=== PATIENT | male | born 1995 | race Caucasian/White ===

== ENCOUNTER 2022-07-18 10:16 | Inpatient (IN) | payer OTHER, MEDICAID, SELFPAY ==
--- NOTE | ~2022-07-18 | CT_ITS ---
EXAMINATION: CT cervical spine wo con DATE: 07/21/2022 18:14 INDICATION: Neck pain. TECHNIQUE: Computed tomography (CT) of the cervical spine was performed without intravenous contrast. Automated exposure control and iterative reconstruction technique were employed. The dose-length pro duct was 509.73 mGy-cm. COMPARISON: None FINDINGS: Bone alignment is normal. There is a Schmorl's node of superior endplate of C7. Interverteb ral disc heights are normal. The following disc levels are specifically discussed: C2-C3: There is no uncovertebral joint osteoarthritis. There is no facet joint osteoarthritis. There is no neural foraminal stenosis. There is no central canal stenosis. C3-C4: There is no uncovertebral joint osteoarthritis. There is no facet joint osteoarthritis. There is no neural foraminal stenosis. There is no central canal stenosis. C4-C5: There is mild bilateral uncovertebral joint osteoarthritis. There is no facet joint osteoarthr itis. There is no neural foraminal stenosis. There is no central canal stenosis. C5-C6: There is mild bilateral uncovertebral joint osteoarthritis. There is no facet joint osteoarthr itis. There is no neural foraminal stenosis. There is no central canal stenosis. C6-C7: There is no uncovertebral joint osteoarthritis. There is no facet joint osteoarthritis. There is no neural foraminal stenosis. There is no central canal stenosis. C7-T1: There is no uncovertebral joint osteoarthritis. There is moderate bilateral facet joint osteoa rthritis. There is mild bilateral neural foraminal stenosis. There is no central canal stenosis. IMPRESSION: 1. Mild cervical spondylosis. Reviewed, dictated and finalized at location A. IN[employer] ANCHOR
--- NOTE | ~2022-07-18 | MR_ITS ---
EXAMINATION: MR brain/brain stem wo con DATE: 07/19/2022 07:44 INDICATION: Occipital headache. TECHNIQUE: Magnetic resonance imaging (MRI) of the brain and brainstem was performed without intraven ous contrast. COMPARISON: None. FINDINGS: There is no intracranial hemorrhage, acute infarction, or abnormal intracranial mass lesion . The ventricles are normal in size. There is mild mucosal thickening in the paranasal sinuses. The o rbits are normal. There is a trace right mastoid effusion. IMPRESSION: 1. Normal brain. Reviewed, dictated and finalized at location E. IMPRESSION: 1. Normal brain.
--- NOTE | ~2022-07-18 | CT_ITS ---
EXAMINATION: CT lumbar spine wo con DATE: 07/21/2022 18:15 INDICATION: Back pain. TECHNIQUE: Computed tomography (CT) of the lumbar spine was performed without intravenous contrast. A utomated exposure control and iterative reconstruction technique were employed. The dose-length produ ct was 1332.44 mGy-cm. COMPARISON: None FINDINGS: There is a 2 mm stone in left kidney. There is 6 degrees levocurvature of lumbar spine. The re are Schmorl's nodes at multiple levels. There is mild chronic anterior wedging of T11 vertebral levi dy. There is mildly decreased disc height at L3-L4 and L4-L5. The osseous central spinal canal is dev elopmentally small in lumbar spine. The following disc levels are specifically discussed: L1-L2: The disc does not extend beyond the endplate margin. There is mild bilateral facet joint osteo arthritis. There is no neural foraminal stenosis. There is no central canal stenosis. L2-L3: The disc is bulging. There is mild bilateral facet joint osteoarthritis. There is mild lateral neural foraminal stenosis. There is mild central canal stenosis. L3-L4: The disc is bulging. There is mild bilateral facet joint osteoarthritis. There is mild bilater al neural foraminal stenosis. There is mild central canal stenosis. L4-L5: The disc is bulging. There is mild right and moderate left facet joint osteoarthritis. There i s mild bilateral neural foraminal stenosis. There is mild central canal stenosis. L5-S1: The disc does not extend beyond the endplate margin. There is moderate right and severe left f acet joint osteoarthritis. There is no neural foraminal stenosis. There is no central canal stenosis. IMPRESSION: 1. Mild lumbar spondylosis. Reviewed, dictated and finalized at location A. GING DIRECTOR IMPRESSION: 1. Mild lumbar spondylosis.
[2022-07-18 10:38] VITALS: BP 149/106; PULSE 127; RESP 20; TEMP 37.2; O2SAT 100
--- NOTE | 2022-07-18 12:18 | ECG_ITS ---
Measurements Intervals [place] Rate: 106 P: 22 GA: 160 QRS: 11 QRSD: 93 T: 12 QT: 310 QTc: 412 Interpretive Statements SINUS TACHYCARDIA BASELINE ARTIFACT- I, II, AVR, V1 ABNORMAL ECG NO PREVIOUS ECG AVAILABLE FOR COMPARISON Electronically Signed On 07-18-2022 13:01:49 CDT by Allen Kruger D.O.
[2022-07-18] MEDS: SODIUM CHLORIDE 0.9% IV 1,000 ML 999 ML IV CONT (12:33)
[2022-07-18 12:47] LABS: Basophils Percent Auto 0.4 % (0.2-1.2); Eosinophils Absolute Auto 0.3 K/mm3 (0-0.3); Eosinophils Percent Auto 3.3 % (0-4.4); Hematocrit 47.5 % (42.0-52.0); Hemoglobin 16.3 g/dL (14.0-18.0); Immature Granulocyte Absolute 0.03 K/mm3 (0.00-0.031); Immature Granulocyte Percent A 0.4 % (0-0.5); Lymphocytes Absolute Auto 3.03 K/mm3 (0.9-3.2); Lymphocytes Percent Auto 39.4 % (18.3-44.2); Mean Corpuscular HGB Conc 34.3 g/dl (32-36); Mean Corpuscular Hemoglobin 29.3 pg (26-34); Mean Corpuscular Volume 85.3 fl (80-100); Mean Platelet Volume 10.5 fl (7.4-10.4); Monocytes Absolute Auto 0.9 K/mm3 (0.1-0.6); Monocytes Percent Auto 11.8 % (2.6-8.5); Neutrophils Absolute Auto 3.4 K/mm3 (1.3-6.7); Neutrophils Percent Auto 44.7 % (45.5-73.1); Platelet Count Result 266 k/mm3 (150-375); Red Blood Count 5.57 M/mm3 (4.6-6.20); Red Cell Distribution Width 12.8 % (11.5-14.5); White Blood Count 7.7 K/mm3 (4.5-10.0)
--- NOTE | 2022-07-18 12:48 | ED.GENADULT ---
HPI - General Adult General Chief complaint: Unspecified Stated complaint: headache, neck pain, tooth abcess, foot cellulitis Time Seen by Provider: 07/18/22 12:05 History of Present Illness HPI narrative: This is a 27-year-old male with past medical history of cervical spine fracture several years ago without fixation, who presents to the emergency department with multiple complaints. He states over the past 2 weeks he began having migraine-like headaches associated with neck and back pain. He was evaluated at an outside hospital given IV fluids and discharged. He then developed erythema and swelling of the right lower extremity for which he was prescribed antibiotics with a diagnosis of cellulitis. He noted improvement of the swelling but persistence of the back and neck pain. He endorses occasional abdominal pain, light sensitivity, but denies chest pain or focal weakness. Related Data Home Medications Medication Instructions Recorded Confirmed sulfamethoxazole 800 1 tablet PO BID 07/18/22 07/18/22 mg-trimethoprim 160 mg tablet tamsulosin 0.4 mg capsule 0.4 mg PO HS 07/18/22 07/18/22 Allergies Allergy/AdvReac Type Severity Reaction Status Date / Time morphine AdvReac Stopped Verified 07/18/22 22:10 Breathing Review of Systems Review of Systems: CONSTITUTIONAL: fever, chills, Denies sweats. EYES: Denies visual changes, redness, or discharge. ENT: Denies rhinorrhea, congestion, sore throat, or otalgia. CARDIOVASCULAR: Denies chest pain, palpitations, or edema. RESPIRATORY: Denies cough or dyspnea. GASTROINTESTINAL: Denies abdominal pain, nausea, vomiting, or diarrhea. GENITOURINARY: Denies dysuria or hematuria. SKIN: Denies rash or itching. MUSCULOSKELETAL: Neck pain, back pain, joint pain, or myalgia. NEUROLOGIC: headache, Denies numbness, dizziness, or weakness. PSYCHIATRIC: Denies anxiety or depression. [facility] Family History Family History (Updated 07/18/22 @ 22:17 by Dana Liu RN) Mother Hypertension Sleep apnea IBS (irritable bowel syndrome) Father Deaf Achalasia Chronic obstructive pulmonary disease Hypertension Asthma Social History Social History Smoking status: Never smoker Alcohol intake: never Substance use: never Has the Lack of Transportation Kept You From Medical Appointments or From Getting Medications?: No Within the Past 12 Months, Were You Worried Whether Your Food Would Run Out Before You Got Money to Buy More?: Never True What is Your Housing Situation Today?: I Have Housing Are You Worried That in the Next 2 Months, You May Not Have Your Own Housing to Live In?: No Do You Have Trouble Paying Your Heating Or Electricity Bill?: No Do You Have Trouble Paying For Medicines?: No Are You Currently Unemployed and Looking for Work?: No Highest Level of Education Completed: Trade/Vocational Certificate Do You Have Trouble With Childcare or the Care of a Family Member?: No Spiritual care concerns: No Exam Narrative: GENERAL: Well-developed, well-nourished, and in no acute distress. HEAD: Normocephalic, atraumatic. EYES: PERRLA and EOMI. ENT: Nares clear, no rhinorrhea or epistaxis. Mucous membranes moist. Oropharynx without tonsillar hypertrophy exudate or other lesions. NECK: Tender to palpation, stiff, head impulse test positive; no adenopathy or masses. No carotid bruits or JVD CHEST: Clear to auscultation. No respiratory distress. No wheezes rales or rhonchi HEART: Tachycardic with regular rhythm. No murmur heard. Normal peripheral pulses. ABDOMEN: Soft, minimally and diffusely tender, nondistended, normal active bowel sounds. EXTREMITIES: Normal range of motion. No edema. SKIN: Warm, dry, no rash. NEURO: No focal deficits. Alert and oriented x3. PSYCH: Normal mood and affect. Course Course Emergency Course: 17:18 - LP demonstrates leukocytosis with lymphocyte predominance and a negative gram stain. Chemistries unremarkable. Infl
[2022-07-18 13:06] LABS: Lactic Acid Reflex 0.7 mmol/L (0.7-2.0)
[2022-07-18 13:08] LABS: Alanine Aminotransferase 50 U/L (6-50); Albumin Level 4.6 g/dL (3.5-5.1); Alkaline Phosphatase 65 U/L (38-126); Anion Gap 15 mmol/L (8-16); Aspartate Amino Transferase 36 U/L (17-59); Bilirubin,Total 1.2 mg/dL (0.2-1.3); Blood Urea Nitrogen 14 mg/dL (9-20); CRP < 0.5 mg/dL (<1.0); Carbon Dioxide 24 mmol/L (22-30); Chloride 101 mmol/L (98-107); Estimated CRCL calculation 116 ml/min; Estimated Glomerular Filt Rate > 60; Glucose 95 mg/dL (65-110); Lipase 41 U/L (23-300); Potassium 3.7 mmol/L (3.4-5.0); Sodium 140 mmol/L (137-145)
[2022-07-18 13:30] LABS: Erythrocyte Sedimentation Rate 4 mm/hr (0-20)
--- NOTE | 2022-07-18 14:01 | PC.NURSE ---
Lumbar puncture set up initiated for patient. Consent signed and obtained at this time.
--- NOTE | 2022-07-18 14:55 | PC.NURSE ---
Patient currently lying flat after lumbar puncture, no difficulty with procedure
[2022-07-18 15:00] VITALS: BP 148/84; PULSE 98; RESP 14; O2SAT 100
--- NOTE | 2022-07-18 15:00 | PC.NURSE ---
assumed care of pt. at this time. Report from SILVER Mims
[2022-07-18 15:04] LABS: Glucose CSF 52 mg/dL (40-70); Total Protein CSF 81 mg/dL (12-60)
[2022-07-18 15:44] LABS: Appearance CSF Hazy (Clear); CSF source CSF; Color CSF Colorless (Colorless); Nucleated Cell CSF 850 /uL (0-5); Red Blood Cell CSF 95 (0-2)
[2022-07-18 15:45] LABS: Lymphocytes CSF 98 % (40-80); Monocytes CSF 1 % (15-45); Neutrophils CSF 1 % (0-6)
--- NOTE | 2022-07-18 16:00 | PC.NURSE ---
report given to SILVER kumar she assumed care of pt.
[2022-07-18 17:18] VITALS: BP 130/74; PULSE 100; RESP 16; TEMP 36.5; O2SAT 98
[2022-07-18] MEDS: cefTRIAXone 2 GM in SODIUM CHLORIDE 0.9% IV 100 ML 200 ML IVPB (17:43)
--- NOTE | 2022-07-18 20:23 | PM.IMHP ---
H&P: HPI History of Present Illness Date/Time: 07/18/22 20:23 Chief Complaint: Headache Narrative: This is a 27-year-old male with past medical history significant for obesity, patient presents to the emergency room after 10 days of headaches which have remained constant in the occipital area and neck area with photophobia patient had initially to abscess for which he completed a course of amoxicillin he was noted to have a right foot cellulitis for which he was placed on Bactrim patient continue to have daily persistent headaches he went fishing 2 weeks ago and noted a tick crawling but no ticks attached. Patient denies any nausea, vomiting but has had some loose stools, no rashes, no cough, no sputum production. In our emergency room patient had LP done and was placed on Rocephin. Preliminary workup was significant for csf analysis which was abnormal. Review of Systems Review of Systems: daily occipital headache neck pain and photophobia Constitutional: Constitutional: Denies chills, Denies fever(s), Reports malaise, Denies night sweats and Denies poor appetite Eyes: Eyes: Reports photophobia ENT: Denies dysphagia, Denies vertigo, Denies dizziness and Denies odynophagia Cardiovascular: Cardiovascular: Denies chest pain, Denies irregular heart rhythm, Denies leg edema, Denies lightheadedness and Denies palpitations Respiratory: Respiratory: Denies chest congestion, Denies cough, Denies excessive phlegm production, Denies pain on inspiration, Denies dyspnea and Denies dyspnea on exertion Gastrointestinal: Gastrointestinal: Denies abdominal pain, Denies dyspepsia, Denies heartburn, Denies diarrhea, Reports loose stools, Denies nausea and Denies vomiting Genitourinary: Genitourinary: Denies dysuria Musculoskeletal: Musculoskeletal: Denies myalgias, Denies arthralgias and Denies limited range of motion Integumentary/Breasts: Skin/Breast: Denies rash and Reports other ( right leg cellulitis) Neurologic: Reports Other visual disturbances ( photophobia) and Reports other ( occipital headache) Psychiatric: Psychiatric: Reports no additional psychiatric complaints and Reports as per HPI Endocrine: Endocrine: Denies cold intolerance, Denies flushing, Denies heat intolerance, Denies polyphagia, Denies polydipsia and Denies palpitations Hematologic/Lymphatic: Hematologic/Lymphatic: Reports no additional hematologic/lymphatic complaints and Reports as per HPI Allergic/Immunologic: Allergic/Immunologic: Reports no additional allergic/immunologic complaints and Reports as per HPI [facility] Family History Family History (Updated 07/18/22 @ 22:17 by Dana iLu RN) Mother Hypertension Sleep apnea IBS (irritable bowel syndrome) Father Deaf Achalasia Chronic obstructive pulmonary disease Hypertension Asthma Social History Social History Smoking status: Never smoker Alcohol intake: never Substance use: never Has the Lack of Transportation Kept You From Medical Appointments or From Getting Medications?: No Within the Past 12 Months, Were You Worried Whether Your Food Would Run Out Before You Got Money to Buy More?: Never True What is Your Housing Situation Today?: I Have Housing Are You Worried That in the Next 2 Months, You May Not Have Your Own Housing to Live In?: No Do You Have Trouble Paying Your Heating Or Electricity Bill?: No Do You Have Trouble Paying For Medicines?: No Are You Currently Unemployed and Looking for Work?: No Highest Level of Education Completed: Trade/Vocational Certificate Do You Have Trouble With Childcare or the Care of a Family Member?: No Spiritual care concerns: No Meds Home Medications and Allergies Home Medications Medication Instructions Recorded Confirmed Type sulfamethoxazole 800 1 tablet PO BID 07/18/22 07/18/22 History mg-trimethoprim 160 mg tablet tamsulosin 0.4 mg capsule 0.4 mg PO HS 07/18/22 07/18/22 History Allergies Allergy/Adv
[2022-07-18 22:00] VITALS: BP 164/104; PULSE 100; RESP 16; TEMP 36.6; O2SAT 98
--- NOTE | 2022-07-18 22:05 | ADMGEN ---
This patient, Otis Reyes, was admitted to 3 [facility] S[facility] Room 310-01. Patient/family oriented to hospital policies and general routines including ID bracelet, bed and alarms, visiting hours, pain management, procedures, bathroom and other care routines, personal items, smoking policy, room service/diet, and visiting hours. Information on how to activate the Rapid Response Team has been discussed. Patient/Family are encouraged to report perceived risks to care and to ask questions if they do not understand what they are told or what they should do.
[2022-07-18 22:29] VITALS: BMI 43.5
[2022-07-18 22:34] VITALS: BP 164/104; TEMP 36.6; BMI 43.5
[2022-07-18 22:36] LABS: SARS-CoV-2 RNA PCR Negative
[2022-07-19] MEDS: LORazepam INJ (*CRX) 2 MG/ML VIAL 1 MG IV PUSH ×2 (02:50→23:16)
[2022-07-19 05:21] VITALS: BP 138/87; PULSE 108; RESP 20; TEMP 37.4; O2SAT 98
[2022-07-19 08:00] VITALS: BP 150/88; PULSE 90; RESP 20; TEMP 37.5; O2SAT 99
[2022-07-19 12:00] VITALS: BP 140/82; PULSE 93; RESP 20; TEMP 36.3; O2SAT 95
[2022-07-19] MEDS: CALCIUM CARBONATE (TUMS) 500 MG (200 MG ELEMENTAL) PO (13:28)
--- NOTE | 2022-07-19 15:52 | PM.IMPN ---
Progress Note: A&P Assessment and Plan (1) CSF pleocytosis: Code(s): D72.9 - Disorder of white blood cells, unspecified Status: Acute Assessment and Plan: status post lumbar [place] leukocytosis with lymphocyte predominance G stain is negative on ceftriaxone 2 g IV Suspected Lyme meningitis delete done (2) Occipital headache: Code(s): R51.9 - Headache, unspecified Status: Acute Assessment and Plan: supportive care MRI of the brain Normal Plan right leg cellulitis improving which is from 2 weeks ago reviewed unsure if this was erythema migrans Subjective Date/time seen: 07/19/22 15:52 Interval history: This is a 27-year-old male with past medical history significant for obesity, patient presents to the emergency room after 10 days of headaches which have remained constant in the occipital area and neck area with photophobia patient had initially to abscess for which he completed a course of amoxicillin he was noted to have a? right foot cellulitis for which he was placed on Bactrim patient continue to have daily persistent headaches he went fishing 2 weeks ago and noted a tick crawling but no ticks attached.? Patient denies any nausea, vomiting but has had some loose stools, no rashes, no cough, no sputum production.? In our emergency room patient had LP done and was placed on Rocephin.? Preliminary workup was significant for csf? analysis which was abnormal. 07/19/2022: Feeling better. Remains afebrile. Neck pain and headache has improved. Rash on his leg has improved Review of Systems Review of Systems: All systems reviewed & are unremarkable except as noted in HPI and below Exam Narrative: GENERAL: Well-developed, well-nourished, and in no acute distress. HEAD: Normocephalic, atraumatic. EYES: PERRLA and EOMI. ENT: Nares clear, no rhinorrhea or epistaxis.? NECK: nontender, no adenopathy or masses.? No carotid bruits or JVD CHEST: Clear to auscultation.? No respiratory distress.? No wheezes rales or rhonchi HEART: regular rate and regular rhythm.? No murmur heard.? Normal peripheral pulses. ABDOMEN: Soft, minimally and diffusely tender, nondistended, normal active bowel sounds. EXTREMITIES: Normal range of motion.? No edema. SKIN: Warm, dry, no rash. NEURO: No focal deficits.? Alert and oriented x3. PSYCH: Normal mood and affect. Objective Data Vital Signs Vital Signs: Vital Signs - 24 hr 07/18/22 17:18 07/18/22 22:00 07/19/22 05:21 Temperature 97.7 F 97.8 F 99.3 F Pulse Rate 100 100 108 H Respiratory Rate 16 16 20 Blood Pressure 130/74 164/104 H 138/87 Pulse Oximetry 98 98 98 Oxygen Delivery 07/19/22 08:00 07/19/22 08:00 07/19/22 12:00 Temperature 99.5 F 97.4 F L Pulse Rate 90 93 Respiratory Rate 20 20 Blood Pressure 150/88 H 140/82 Pulse Oximetry 99 95 Oxygen Delivery Room Air 07/18/22 22:34 Temperature 97.8 F Pulse Rate Respiratory Rate Blood Pressure 164/104 H Pulse Oximetry Oxygen Delivery Intake/Output Intake/Output: Intake & Output 07/16/22 07/17/22 07/18/22 07/19/22 23:59 23:59 23:59 23:59 Intake Total 1200 960 Balance 1200 960 Meds/Results Medications: Active Medications Generic Name Dose Route Start Last Admin Trade Name Freq PRN Reason Stop Dose Admin Calcium Carbonate 200 mg 07/19/22 11:39 07/19/22 13:28 Calcium Carbonate (Tums) 500 Mg (200 Mg Elemental) PO 200 mg Q6H PRN Administration Indigestion Acetaminophen 1,000 mg in 100 mls @ 400 mls/hr 07/18/22 17:18 07/19/22 11:10 Ofirmev 1,000 Mg Ivpb IVPB 07/19/22 17:17 Infused Q6H PRN Infusion Mild Pain (1-3) or Fever Lorazepam 1 mg 07/18/22 23:35 07/19/22 02:50 Lorazepam Inj (*Crx) 2 Mg/Ml Vial IV PUSH 1 mg Q6H PRN Administration Pain Tamsulosin HCl 0.4 mg 07/19/22 21:00 Tamsulosin Hcl 0.4 Mg Capsule PO [facility] Radiology Results: ITS Impressions Brain MRI 07/19/22 14:47 IMPR
[2022-07-19 16:00] VITALS: BP 151/85; PULSE 101; RESP 20; TEMP 36.6; O2SAT 97
[2022-07-19 16:56] VITALS: O2SAT 98
[2022-07-19] MEDS: cefTRIAXone 2 GM in SODIUM CHLORIDE 0.9% IV 100 ML 200 ML IVPB (17:04)
[2022-07-19 20:00] VITALS: BP 151/89; PULSE 94; RESP 20; TEMP 36.9; O2SAT 96
[2022-07-19] MEDS: TAMSULOSIN HCL 0.4 MG CAPSULE PO (20:15)
[2022-07-19] MEDS: ACETAMINOPHEN 325 MG TABLET 650 MG PO (21:58)
[2022-07-20] VITALS: BP 160/88; PULSE 100; RESP 20; TEMP 36.6; O2SAT 96
--- NOTE | 2022-07-20 01:15 | PC.NURSE ---
Daylight Savings Time For Daylight Savings Time Ending in the Fall - Clocks are moved back. For Daylight Savings Time Beginning in the Spring - Clocks are moved ahead. For [facility], the time of change occurs at 0200 hrs. Time is taken from the cafeteria server. This entry on the patient's chart recognizes the change in time reflected during documentation. Example: 2 entries for vital signs may be charted for 0200 hrs.
[2022-07-20 04:00] VITALS: BP 167/94; PULSE 86; RESP 16; TEMP 36.9; O2SAT 100
[2022-07-20 08:00] VITALS: BP 141/97; PULSE 80; RESP 20; TEMP 36.7; O2SAT 97
[2022-07-20] MEDS: ACETAMINOPHEN 325 MG TABLET 650 MG PO (08:45)
[2022-07-20] MEDS: HYDROcodone/acetaminophen (*CRX) 5-325 MG TABLET 1 TAB PO ×2 (11:58→20:19)
[2022-07-20 12:00] VITALS: BP 156/86; PULSE 93; RESP 20; TEMP 36.2; O2SAT 98
--- NOTE | 2022-07-20 13:29 | PM.IMPN ---
Progress Note: A&P Assessment and Plan (1) CSF pleocytosis: Code(s): D72.9 - Disorder of white blood cells, unspecified Status: Acute Assessment and Plan: status post lumbar puncture, CSF with leukocytosis with lymphocyte predominance G stain is negative on ceftriaxone 2 g IV day 3 Suspected Lyme meningitis (2) Occipital headache: Code(s): R51.9 - Headache, unspecified Status: Acute Assessment and Plan: supportive care MRI of the brain Normal Plan right leg cellulitis seems resolved today which is from 2 weeks ago reviewed unsure if this was erythema migrans Subjective Date/time seen: 07/20/22 13:29 Interval history: This is a 27-year-old male with past medical history significant for obesity, patient presents to the emergency room after 10 days of headaches which have remained constant in the occipital area and neck area with photophobia patient had initially to abscess for which he completed a course of amoxicillin he was noted to have a? right foot cellulitis for which he was placed on Bactrim patient continue to have daily persistent headaches he went fishing 2 weeks ago and noted a tick crawling but no ticks attached.? Patient denies any nausea, vomiting but has had some loose stools, no rashes, no cough, no sputum production.? In our emergency room patient had LP done and was placed on Rocephin.? Preliminary workup was significant for csf? analysis which was abnormal. 07/19/2022: Feeling better. Remains afebrile. Neck pain and headache has improved. Rash on his leg has improved 07/20/2022: Complains of muscle spasms in his legs. Remains afebrile. no shortness of breath or chest pain Review of Systems Review of Systems: All systems reviewed & are unremarkable except as noted in HPI and below Exam Narrative: GENERAL: Well-developed, well-nourished, and in no acute distress. HEAD: Normocephalic, atraumatic. EYES: PERRLA and EOMI. ENT: Nares clear, no rhinorrhea or epistaxis.? NECK: nontender, no adenopathy or masses.? No carotid bruits or JVD CHEST: Clear to auscultation.? No respiratory distress.? No wheezes rales or rhonchi HEART: regular rate and regular rhythm.? No murmur heard.? Normal peripheral pulses. ABDOMEN: Soft, minimally and diffusely tender, nondistended, normal active bowel sounds. EXTREMITIES: Normal range of motion.? No edema. right foot redness is improved SKIN: Warm, dry, no rash. NEURO: No focal deficits.? Alert and oriented x3. PSYCH: Normal mood and affect. Objective Data Vital Signs Vital Signs: Vital Signs - 24 hr 07/19/22 16:00 07/19/22 16:56 07/19/22 20:00 Temperature 97.8 F 98.4 F Pulse Rate 101 H 94 Respiratory Rate 20 20 Blood Pressure 151/85 H 151/89 H Pulse Oximetry 97 98 96 Oxygen Delivery Room Air 07/19/22 20:00 07/20/22 00:00 07/20/22 04:00 Temperature 97.9 F 98.5 F Pulse Rate 100 86 Respiratory Rate 20 16 Blood Pressure 160/88 H 167/94 H Pulse Oximetry 96 100 Oxygen Delivery Room Air 07/20/22 08:00 07/20/22 08:00 Temperature 98.0 F Pulse Rate 80 80 Respiratory Rate 20 20 Blood Pressure 141/97 H Pulse Oximetry 97 97 Oxygen Delivery Room Air Intake/Output Intake/Output: Intake & Output 07/17/22 07/18/22 07/19/22 07/20/22 23:59 23:59 23:59 22:59 Intake Total 1200 1200 662 Balance 1200 1200 662 Meds/Results Medications: Active Medications Generic Name Dose Route Start Last Admin Trade Name Freq PRN Reason Stop Dose Admin Acetaminophen 650 mg 07/19/22 18:36 07/20/22 08:45 Acetaminophen 325 Mg Tablet PO 650 mg Q6H PRN Administration Mild Pain (1-3) or Fever Hydrocodone Bitart/Acetaminophen 1 tab 07/20/22 10:57 07/20/22 11:58 Hydrocodone/Acetaminophen (*Crx) 5-325 Mg Tablet PO 1 tab Q4H PRN Administration Pain Rated 4-6 Calcium Carbonate 200 mg 07/19/22 11:39 07/19/22 13:28 Calcium Carbonate (Tums) 500 Mg (200 Mg Elemental) PO
[2022-07-20 16:00] VITALS: BP 146/78; PULSE 79; RESP 20; TEMP 35.9; O2SAT 99
[2022-07-20] MEDS: cefTRIAXone 2 GM in SODIUM CHLORIDE 0.9% IV 100 ML 200 ML IVPB (17:50)
[2022-07-20 20:00] VITALS: BP 127/81; PULSE 89; RESP 18; TEMP 36.1; O2SAT 98
[2022-07-20] MEDS: TAMSULOSIN HCL 0.4 MG CAPSULE PO (20:10)
[2022-07-20] MEDS: CYCLOBENZAPRINE HCL 10 MG TABLET PO (23:57)
[2022-07-21] VITALS: BP 135/83; PULSE 91; RESP 18; TEMP 35.9; O2SAT 98
[2022-07-21] MEDS: HYDROcodone/acetaminophen (*CRX) 5-325 MG TABLET 1 TAB PO ×3 (01:46→20:35)
[2022-07-21 04:00] VITALS: BP 146/83; PULSE 86; RESP 18; TEMP 35.8; O2SAT 99
[2022-07-21 06:27] LABS: Basophils Percent Auto 0.6 % (0.2-1.2); Eosinophils Absolute Auto 0.5 K/mm3 (0-0.3); Eosinophils Percent Auto 7.1 % (0-4.4); Hematocrit 45.2 % (42.0-52.0); Hemoglobin 15.5 g/dL (14.0-18.0); Immature Granulocyte Absolute 0.02 K/mm3 (0.00-0.031); Immature Granulocyte Percent A 0.3 % (0-0.5); Lymphocytes Absolute Auto 2.84 K/mm3 (0.9-3.2); Lymphocytes Percent Auto 39.7 % (18.3-44.2); Mean Corpuscular HGB Conc 34.3 g/dl (32-36); Mean Corpuscular Hemoglobin 29.2 pg (26-34); Mean Corpuscular Volume 85.3 fl (80-100); Mean Platelet Volume 11.1 fl (7.4-10.4); Monocytes Absolute Auto 0.5 K/mm3 (0.1-0.6); Monocytes Percent Auto 7.5 % (2.6-8.5); Neutrophils Absolute Auto 3.2 K/mm3 (1.3-6.7); Neutrophils Percent Auto 44.8 % (45.5-73.1); Platelet Count Result 183 k/mm3 (150-375); Red Cell Distribution Width 12.6 % (11.5-14.5); White Blood Count 7.2 K/mm3 (4.5-10.0)
[2022-07-21 06:40] LABS: Alanine Aminotransferase 32 U/L (6-50); Alkaline Phosphatase 71 U/L (38-126); Anion Gap 15 mmol/L (8-16); Aspartate Amino Transferase 23 U/L (17-59); Bilirubin,Total 0.7 mg/dL (0.2-1.3); Blood Urea Nitrogen 11 mg/dL (9-20); Calcium 8.5 mg/dL (8.4-10.2); Carbon Dioxide 23 mmol/L (22-30); Chloride 103 mmol/L (98-107); Estimated CRCL calculation 177 ml/min; Estimated Glomerular Filt Rate > 60; Glucose 100 mg/dL (65-110); Potassium 3.8 mmol/L (3.4-5.0); Sodium 141 mmol/L (137-145)
[2022-07-21 06:46] LABS: Lyme Disease DNA Not detected (Not Detected); Specimen Source CSF
[2022-07-21 08:00] VITALS: BP 128/94; PULSE 69; RESP 20; TEMP 36.4; O2SAT 98
[2022-07-21 12:00] VITALS: BP 161/78; PULSE 86; RESP 20; TEMP 36.4; O2SAT 96
[2022-07-21 16:00] VITALS: BP 138/91; PULSE 84; RESP 20; TEMP 36.2; O2SAT 97
--- NOTE | 2022-07-21 16:30 | PM.IMPN ---
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 lyme ab pending. hsv , rpr, [place] has not valerie sent, dsicussed with lab and will be ressent. lyme ab in blood pending as well. has multiple joint pains, which can relate to lyme arthritis as well. (2) Occipital headache: Code(s): R51.9 - Headache, unspecified Status: Acute Assessment and Plan: supportive care MRI of the brain Normal (3) Acute neck pain: Code(s): M54.2 - Cervicalgia Status: Acute Assessment and Plan: check ct cervical spine to furthe revaluate (4) Low back pain: Code(s): M54.50 - Low back pain, unspecified Status: Acute Assessment and Plan: check ct to further evaluate Plan right leg cellulitis seems resolved today which is from 2 weeks ago reviewed unsure if this was erythema migrans Subjective Date/time seen: 07/21/22 16:30 Interval history: This is a 27-year-old male with past medical history significant for obesity, patient presents to the emergency room after 10 days of headaches which have remained constant in the occipital area and neck area with photophobia patient had initially to abscess for which he completed a course of amoxicillin he was noted to have a? right foot cellulitis for which he was placed on Bactrim patient continue to have daily persistent headaches he went fishing 2 weeks ago and noted a tick crawling but no ticks attached.? Patient denies any nausea, vomiting but has had some loose stools, no rashes, no cough, no sputum production.? In our emergency room patient had LP done and was placed on Rocephin.? Preliminary workup was significant for csf? analysis which was abnormal. 07/19/2022: Feeling better. Remains afebrile. Neck pain and headache has improved. Rash on his leg has improved 07/20/2022: Complains of muscle spasms in his legs. Remains afebrile. no shortness of breath or chest pain 07/21/2022: he feels a bit crampy and drowsy today. neck and back hurt persists. left thigh is more painful than the other areas. labs were reviewed. remains afebrile. Review of Systems Review of Systems: All systems reviewed & are unremarkable except as noted in HPI and below Exam Narrative: GENERAL: Well-developed, well-nourished, and in no acute distress. HEAD: Normocephalic, atraumatic. EYES: PERRLA and EOMI. ENT: Nares clear, no rhinorrhea or epistaxis.? NECK: nontender, no adenopathy or masses.? No carotid bruits or JVD CHEST: Clear to auscultation.? No respiratory distress.? No wheezes rales or rhonchi HEART: regular rate and regular rhythm.? No murmur heard.? Normal peripheral pulses. ABDOMEN: Soft, minimally and diffusely tender, nondistended, normal active bowel sounds. EXTREMITIES: Normal range of motion.? No edema. right foot redness is improved SKIN: Warm, dry, no rash. NEURO: No focal deficits.? Alert and oriented x3. PSYCH: Normal mood and affect. Objective Data Vital Signs Vital Signs: Vital Signs - 24 hr 07/20/22 20:00 07/21/22 00:00 07/20/22 20:00 Temperature 97.0 F L 96.7 F L Pulse Rate 89 91 Respiratory Rate 18 18 Blood Pressure 127/81 135/83 Pulse Oximetry 98 98 Oxygen Delivery Room Air 07/21/22 04:00 07/21/22 09:45 07/21/22 08:00 Temperature 96.5 F L 97.5 F L Pulse Rate 86 69 Respiratory Rate 18 20 Blood Pressure 146/83 H 128/94 H Pulse Oximetry 99 98 Oxygen Delivery Room Air 07/21/22 12:00 Temperature 97.6 F Pulse Rate 86 Respiratory Rate 20 Blood Pressure 161/78 H Pulse Oximetry 96 Oxygen Delivery Intake/Output Intake/Output: Intake & Output 07/19/22 07/20/22 11
[2022-07-21 17:09] LABS: CRP < 0.5 mg/dL (<1.0)
[2022-07-21 17:22] LABS: Erythrocyte Sedimentation Rate 1 mm/hr (0-20)
[2022-07-21] MEDS: cefTRIAXone 2 GM in SODIUM CHLORIDE 0.9% IV 100 ML 200 ML IVPB (17:58)
[2022-07-21] MEDS: ACETAMINOPHEN 325 MG TABLET 650 MG PO (18:03)
[2022-07-21 20:00] VITALS: BP 144/86; PULSE 79; RESP 18; TEMP 36.3; O2SAT 98
[2022-07-21] MEDS: TAMSULOSIN HCL 0.4 MG CAPSULE PO (20:30)
[2022-07-22] VITALS (7 sets, daily range): BP systolic 134–167; BP diastolic 67–98; PULSE 66–114; RESP 18–22; TEMP 35.6–36.2; O2SAT 97–100
[2022-07-22] MEDS: LORazepam INJ (*CRX) 2 MG/ML VIAL 1 MG IV PUSH (00:15)
[2022-07-22 06:37] LABS: Basophils Percent Auto 0.7 % (0.2-1.2); Eosinophils Absolute Auto 0.4 K/mm3 (0-0.3); Eosinophils Percent Auto 7.2 % (0-4.4); Hemoglobin 16.2 g/dL (14.0-18.0); Immature Granulocyte Absolute 0.02 K/mm3 (0.00-0.031); Immature Granulocyte Percent A 0.3 % (0-0.5); Lymphocytes Absolute Auto 2.42 K/mm3 (0.9-3.2); Lymphocytes Percent Auto 39.7 % (18.3-44.2); Mean Corpuscular HGB Conc 33.8 g/dl (32-36); Mean Corpuscular Hemoglobin 29.4 pg (26-34); Mean Corpuscular Volume 87.1 fl (80-100); Monocytes Absolute Auto 0.4 K/mm3 (0.1-0.6); Monocytes Percent Auto 6.9 % (2.6-8.5); Neutrophils Absolute Auto 2.8 K/mm3 (1.3-6.7); Neutrophils Percent Auto 45.2 % (45.5-73.1); Platelet Count Result 175 k/mm3 (150-375); Red Blood Count 5.51 M/mm3 (4.6-6.20); Red Cell Distribution Width 12.9 % (11.5-14.5); White Blood Count 6.1 K/mm3 (4.5-10.0)
[2022-07-22 06:51] LABS: Alanine Aminotransferase 39 U/L (6-50); Albumin Level 4.2 g/dL (3.5-5.1); Alkaline Phosphatase 65 U/L (38-126); Anion Gap 11 mmol/L (8-16); Aspartate Amino Transferase 29 U/L (17-59); Bilirubin,Total 0.9 mg/dL (0.2-1.3); Blood Urea Nitrogen 11 mg/dL (9-20); Calcium 8.7 mg/dL (8.4-10.2); Carbon Dioxide 28 mmol/L (22-30); Chloride 102 mmol/L (98-107); Estimated CRCL calculation 156 ml/min; Estimated Glomerular Filt Rate > 60; Glucose 87 mg/dL (65-110); Potassium 4.6 mmol/L (3.4-5.0); Sodium 141 mmol/L (137-145)
[2022-07-22] MEDS: ACETAMINOPHEN 325 MG TABLET 650 MG PO (11:11)
[2022-07-22] MEDS: IBUPROFEN 600 MG TABLET PO ×2 (13:16→21:58)
--- NOTE | 2022-07-22 13:26 | PM.IMPN ---
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 lyme ab pending. hsv , rpr, [place] has not valerie sent, dsicussed with lab and will be ressent. lyme ab in blood pending as well. has multiple joint pains, which can relate to lyme arthritis as well. ibuprofen p.r.n. (2) Occipital headache: Code(s): R51.9 - Headache, unspecified Status: Acute Assessment and Plan: supportive care MRI of the brain Normal (3) Acute neck pain: Code(s): M54.2 - Cervicalgia Status: Acute Assessment and Plan: CT cervical spine with mild spondylosis (4) Low back pain: Code(s): M54.50 - Low back pain, unspecified Status: Acute Assessment and Plan: CT with mild spondylosis Plan right leg cellulitis seems resolved which is from 2 weeks ago reviewed unsure if this was erythema migrans Subjective Date/time seen: 07/22/22 13:26 Interval history: This is a 27-year-old male with past medical history significant for obesity, patient presents to the emergency room after 10 days of headaches which have remained constant in the occipital area and neck area with photophobia patient had initially to abscess for which he completed a course of amoxicillin he was noted to have a? right foot cellulitis for which he was placed on Bactrim patient continue to have daily persistent headaches he went fishing 2 weeks ago and noted a tick crawling but no ticks attached.? Patient denies any nausea, vomiting but has had some loose stools, no rashes, no cough, no sputum production.? In our emergency room patient had LP done and was placed on Rocephin.? Preliminary workup was significant for csf? analysis which was abnormal. 07/19/2022: Feeling better. Remains afebrile. Neck pain and headache has improved. Rash on his leg has improved 07/20/2022: Complains of muscle spasms in his legs. Remains afebrile. no shortness of breath or chest pain 07/21/2022: he feels a bit crampy and drowsy today. neck and back hurt persists. left thigh is more painful than the other areas. labs were reviewed. remains afebrile. 07/22/2022: Feels dizzy and lightheaded. Some headache. Low back pain persist.mild nausea but no vomiting remains afebrile Review of Systems Review of Systems: All systems reviewed & are unremarkable except as noted in HPI and below Exam Narrative: GENERAL: Well-developed, well-nourished, and in no acute distress. HEAD: Normocephalic, atraumatic. EYES: PERRLA and EOMI. ENT: Nares clear, no rhinorrhea or epistaxis.? NECK: nontender, no adenopathy or masses.? No carotid bruits or JVD CHEST: Clear to auscultation.? No respiratory distress.? No wheezes rales or rhonchi HEART: regular rate and regular rhythm.? No murmur heard.? Normal peripheral pulses. ABDOMEN: Soft, minimally and diffusely tender, nondistended, normal active bowel sounds. EXTREMITIES: Normal range of motion.? No edema. right foot redness is improved SKIN: Warm, dry, no rash. NEURO: No focal deficits.? Alert and oriented x3. PSYCH: Normal mood and affect. Objective Data Vital Signs Vital Signs: Vital Signs - 24 hr 07/21/22 16:00 07/21/22 20:00 07/21/22 20:00 Temperature 97.2 F L 97.3 F L Pulse Rate 84 79 Respiratory Rate 20 18 Blood Pressure 138/91 H 144/86 H Pulse Oximetry 97 98 Oxygen Delivery Room Air 07/22/22 00:00 07/22/22 04:00 07/22/22 08:00 Temperature 96.6 F L 96.7 F L 97.1 F L Pulse Rate 89 81 88 Respiratory Rate 18 18 20 Blood Pressure 150/86 H 134/89 136/82 Pulse Oximetry 98 97 97 Oxygen Delivery 07/22/22 08:10 07/22/22 11:21 07/22/22 12:36 Temperature 9
[2022-07-22] MEDS: cefTRIAXone 2 GM in SODIUM CHLORIDE 0.9% IV 100 ML 200 ML IVPB (17:16)
[2022-07-22] MEDS: TAMSULOSIN HCL 0.4 MG CAPSULE PO (21:58)
--- NOTE | 2022-07-22 23:57 | PC.NURSE ---
Pt states that his back is sore, possibly from laying in bed. Pt states that he is still having stiff/sore muscles. Pt participated and contributed in plan of care for the shift. Pt expresses no other needs at this time. Will continue to monitor pt.
[2022-07-23] VITALS: BP 169/89; PULSE 91; RESP 18; TEMP 36.2; O2SAT 87
[2022-07-23 04:00] VITALS: BP 137/88; PULSE 82; RESP 18; TEMP 35.7; O2SAT 95
[2022-07-23 08:00] VITALS: BP 164/96; PULSE 96; RESP 18; TEMP 36.3; O2SAT 98
[2022-07-23] MEDS: IBUPROFEN 600 MG TABLET PO (12:00)
--- NOTE | 2022-07-23 12:54 | PM.DS ---
DS: Admitting Diagnosis Discharge Date 07/23/2022 Admitting Diagnosis headache DS: Discharge Diagnosis Discharge Diagnosis (1) CSF pleocytosis: Code(s): D72.9 - Disorder of white blood cells, unspecified Status: Acute (2) Occipital headache: Code(s): R51.9 - Headache, unspecified Status: Acute (3) Acute neck pain: Code(s): M54.2 - Cervicalgia Status: Acute (4) Low back pain: Code(s): M54.50 - Low back pain, unspecified Status: Acute DS: Summary Hospital Course Hospital Course: # headaches: With findings of nuchal rigidity on arrival to the ER. Recent history of right leg rash/cellulitis in treatment accordingly with different antibiotics which include Bactrim and Augmentin. Lumbar puncture was performed in the ER to rule out meningitis. 8 mL of clear nonbloody nonpurulent CSF was obtained. Spinal fluid analysis indicated Of meningitis. culture was negative for any bacteria ruling out bacterial meningitis. With his rash and recent history of encounter with check. Suspected line meningitis. He was started on IV ceftriaxone with subsequent improvement in his symptoms. His culture was monitored during the hospital stay and remained negative. His CSF was sent for Lyme DNA which came back negative however antibody screen is still pending. Other CSF studies are also pending at the time of discharge. With symptomatic improvement and. History highly suggestive of Lyme illness he will be treated as such. He also had an MRI of his brain during the hospital stay which was entirely normal. For his back pain he also had CT scan of cervical and lumbar spine which had mild spondylosis. Retrospectively his right foot cellulitis could have been indicative of erythema migrans. He will be switched to doxycycline at discharge for 14 more days. S blood pressure was mildly elevated during the hospital stay on of which mostly related to his pain. Flexeril use for muscle relaxation on caused him to be dizzy and lightheaded and also made him drowsy. And hence was discontinued. Time Spent with Patient Time attestation: Total time spent providing and/or coordinating discharge services: 40 minutes Exam Narrative: GENERAL: Well-developed, well-nourished, and in no acute distress. HEAD: Normocephalic, atraumatic. EYES: PERRLA and EOMI. ENT: Nares clear, no rhinorrhea or epistaxis.? NECK: nontender, no adenopathy or masses.? No carotid bruits or JVD CHEST: Clear to auscultation.? No respiratory distress.? No wheezes rales or rhonchi HEART: regular rate and regular rhythm.? No murmur heard.? Normal peripheral pulses. ABDOMEN: Soft, minimally and diffusely tender, nondistended, normal active bowel sounds. EXTREMITIES: Normal range of motion.? No edema. right foot redness is improved SKIN: Warm, dry, no rash. NEURO: No focal deficits.? Alert and oriented x3. PSYCH: Normal mood and affect. DS: Data Data Completed and Pending Labs on day of discharge: Labs from last 24 hours 07/21/22 14:31 Fluid EBV Source Pending CSF Lactate Pending CSF EBV DNA (PCR) Pending CSF VZV DNA (PCR) Pending VZV (PCR) Source Pending Imaging Radiologist's impression: ITS Impressions Brain MRI 07/19/22 14:47 IMPRESSION: 1. Normal brain. Cervical Spine CT 07/22/22 08:31 IMPRESSION: 1. Mild cervical spondylosis. Lumbar Spine CT 07/22/22 08:33 IMPRESSION: 1. Mild lumbar spondylosis. Discharge Plan Discharge Attending physician on discharge: Pedro Luis Robles Discharging Clinician: Pedro Luis Robles Anticipated Discharge Date/Time: 07/23/22 12:51 Patient Disposition: Home, Self-Care Activity: as tolerated Diet: heart healthy and low sodium Patient Instructions: Antibiotic Form, Pain Management (DC) Stand Alone Forms: General Discharge Information Follow-up/Referrals: PHYSICIAN NOT ON STAFF,NONSTAFF [Primary Care Provider] - 1 Week
[2022-07-23] MEDS: ACETAMINOPHEN 325 MG TABLET 650 MG PO (14:13)
[2022-07-23 14:49] LABS: Lyme Disease Ab (IgM), Blot Negative (Negative); Lyme Disease Ab(IgG), Blot Negative (Negative)
[2022-07-23 23:53] LABS: Epstein Barr Virus DNA PCR Not Detected (Not Detected); Source Epstein Barr Virus CSF
[2022-07-24 11:19] LABS: VZV DNA, QL PCR Not Detected (Not Detected); Varicella Zoster Source CSF
[2022-07-26 15:56] LABS: Herpes Simplex Type 1 DNA PCR Not Detected (Not Detected); Herpes Simplex Type 2 DNA PCR Not Detected (Not Detected)
[2022-07-27 14:54] LABS: VDRL Quantitative CSF Nonreactive (Nonreactive)
== END 2022-07-23 15:15 | disposition home or self-care (01) | DRG 815 ==
LOC: ANHED 17:38 → ANH3MEDSUR 19:31
PROVIDERS: Internal Medicine; Admitting Provider Hospitalist; Emergency Provider Preventive Medicine Aerospace Medicine; Visit Provider Internal Medicine
DX: D72.820 Lymphocytosis (symptomatic) (principal); Z68.41 Body mass index [BMI] 40.0-44.9, adult; D72.829 Elevated white blood cell count, unspecified; R51.9 Headache, unspecified; M47.816 Spondylosis without myelopathy or radiculopathy, lumbar region; M47.812 Spondylosis without myelopathy or radiculopathy, cervical region; Z20.822 Contact with and (suspected) exposure to COVID-19; E66.9 Obesity, unspecified
CPT/HCPCS: 36415; 70551; 72125; 72131; 80053; 82945; 83605; 83690; 83735; 84157; 85025; 85652; 86140; 86592; 86617; 87045; 87070; 87177; 87209; 87269; 87272; 87427; 87529; 87798; 87801; 89051; 93005; 96361; 96365; 96375; 96376; 99285; A9270; G0378; J0131; J0696; J2060; J7030; U0003; U0005

== ENCOUNTER 2025-01-19 09:54 | Emergency (ER) | payer BC, SELFPAY ==
--- NOTE | ~2025-01-19 | XR_ITS ---
Clinical Indication: Cough PA and lateral views of the chest: Comparison: None Findings: Mild bibasilar haziness is present. No pleural effusion.. Cardiomediastinal silhouette is within normal limits. Bones and soft tissues are unremarkable. Impression: Probable minimal bibasilar pulmonary edema/atelectasis. Reviewed, dictated and finalized at [facility]. Impression: Probable minimal bibasilar pulmonary edema/atelectasis.
--- NOTE | ~2025-01-19 | CT_ITS ---
Non-contrast Head CT History: Headache Technique: Axial imaging of the brain was performed prior to and following intravenous contrast admin istration of 100 cc of Omnipaque 350 contrast material.. Dose reduction technique was used on this sc an by utilizing automated exposure control and iterative reconstruction technique. The dose-length pr oduct (DLP) was 1210.67 mGy-cm. Findings: There is no evidence of intracranial hemorrhage, mass lesion, or acute infarct. Brain par enchyma appears normal. The ventricles and subarachnoid spaces are normal in size. The calvarium ap pears normal. There is minimal bilateral ethmoid sinus disease. The remaining visualized paranasal si nuses and mastoid air cells are clear. No abnormal postcontrast enhancement evident. Impression: No intracranial abnormality seen. Minimal bilateral ethmoid sinus disease. Reviewed, dictated and finalized at [facility]. Impression: No intracranial abnormality seen. Minimal bilateral ethmoid sinus disease.
[2025-01-19 10:11] VITALS: BP 167/98; PULSE 118; RESP 20; TEMP 36.9; O2SAT 97
--- NOTE | 2025-01-19 10:18 | ED_ITS ---
HPI - Nausea/Vomiting/Diarrhea General Chief complaint: Nausea/Vomiting/Diarrhea Stated complaint: sick for 4 days Time Seen by Provider: 01/19/25 10:02 Source: patient and old records reviewed Mode of arrival: ambulatory Limitations: no limitations History of Present Illness HPI Narrative: Patient is a 29-year-old male who presents the ED with report of a headache. Patient reports he has had a persistent headache over the past 4 days. Present throughout his posterior head, wraps throughout the remainder of his head. States pain has been intermittent. He also reports having sinus pressure and congestion, sore throat, mild cough, myalgias. He took a COVID test at home and this was negative. He has been taking Sudafed for his symptoms which does provide temporary relief of his headaches. Reports photophobia. Reports intermittent nausea. Denies vomiting. Reports subjective fevers, denies documented fever. Denies sick contacts, though does report his son has conjunctivitis/ear infection recently. Patient states in 2021, he had similar symptoms and was thought to have meningitis. Per records, he had an abnormal LP with white blood cells and lymphocyte predominance, was admitted for possible Lyme meningitis and was treated for such, however lyme markers/antibodies resulted negative. Patient denies any focal numbness or weakness, neck stiffness, rash currently. Related Data Home Medications ?Medication ?Instructions ?Recorded ?Confirmed ?Last Taken ?Type tamsulosin 0.4 mg capsule 0.4 mg PO HS 07/18/22 07/18/22 07/17/22 21:00 History Allergies Allergy/AdvReac Type Severity Reaction Status Date / Time morphine Allergy Severe Stopped Verified 01/19/25 10:21 Breathing Review of Systems 2 Review of Systems: All systems reviewed & are unremarkable except as noted in HPI. All systems reviewed & are unremarkable except as noted in HPI and below PMFSH Family History Family History Mother Hypertension Sleep apnea IBS (irritable bowel syndrome) Father Deaf Achalasia Chronic obstructive pulmonary disease Hypertension Asthma Social History Social History Smoking status: Never smoker Alcohol intake: never Substance use: never Lack of Transportation: No Lack of Food: Never True Current Housing: I Have Housing Concerned About Future Housing: No Difficulty Paying Gas/Electric Bills: No Difficulty Paying for Meds: No Currently Unemployed: No Education: Trade/Vocational Certificate Difficulty w/ Childcare or Family Care: No Spiritual care concerns: No Exam 2 Narrative: GENERAL: Well appearing, morbidly obese with BMI of 43.0, non-toxic, in no acute distress. HEAD: Normocephalic, atraumatic. NECK: No focal tenderness. No nuchal rigidity, negative Kernig's and Brudzinski's. RESPIRATORY: Airway patent, respirations nonlabored. Clear to auscultation bilaterally, no rales, rhonchi, wheezing. CARDIOVASCULAR: Borderline tachycardic with regular rhythm without murmurs, rubs, or gallops. MUSCULOSKELETAL: Moves all extremities. No gross deformities. SKIN: Warm, dry, normal color. No rash. NEURO: A&O X3. Speech clear. Cranial nerves II-XII grossly intact. Steady gait. No ataxic movements. No focal deficits. PSYCHIATRIC: Appropriate mood and affect. Normal interaction. Course Vital Signs Vital signs: Vital Signs Temperature 98.4 F 01/19/25 10:11 Pulse Rate 118 H 01/19/25 10:11 Respiratory Rate 20 01/19/25 10:11 Blood Pressure 167/98 H 01/19/25 10:11 Pulse Oximetry 97 01/19/25 10:11 Oxygen Delivery Room Air 01/19/25 10:11 Temperature 98.4 F 01/19/25 10:11 Pulse Rate 91 01/19/25 13:44 Respiratory Rate 20 01/19/25 14:08 Blood Pressure 151/90 H 01/19/25 14:08 Pulse Oximetry 98 01/19/25 14:08 Oxygen Delivery Room Air 01/19/25 10:11 MDM - Nausea/Vomiting/Diarrhea MDM Narrative Medical decision making narrative: Patient presented to ED with several day history of headache, URI symptoms. 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 Patient mildly tachycardic upon arrival. Afebrile. No focal deficits appreciated on exam. No nuchal rigidity or meningismus. Negative Kernig's and Brudzinski's sign. Fluids and migraine cocktail initiated. CBC with minimal leukocytosis of 11.9. CMP is unremarkable. Stable electrolytes and kidney function. Lactic acid within normal range. Inflammatory markers are essentially within normal range. Lactic acid WNL. Viral swabs negative. CT brain with and without contrast obtained per recommendation of radiologist, and this was unremarkable. Chest x-ray without focal consolidation. Discussed lab and imaging findings, overall reassuring workup with patient and family at bedside. I have very low suspicion for meningitis at this time. Patient has remained neurologically intact, afebrile throughout ED stay. He does not have any nuchal rigidity. He did report improvement after migraine cocktail. Overall presentation seems most consistent with a viral infection, viral syndrome, upper respiratory infection. Feel patient is safe for discharge home at this time. He is in agreement with plan, he feels comfortable discharge home. Discussed continued management of symptoms at home. Will prescribe Tessalon Perles and Zofran. Discussed very strict return precautions. Recommended that patient have close follow-up with his PCP within the next 1 week to ensure resolution of symptoms. Patient voiced understanding. Discharged in stable condition. Vital signs stable at time of D/C. Medical Records Attestation: I reviewed the patient's medical records. Lab Data Attestation: I reviewed the patient's lab results. 01/19/25 10:20 01/19/25 10:20 Labs: Lab Results 01/19/25 01/19/25 Range/Units 10:20 10:30 WBC 11.9 H (4.5-10.0) K/mm3 RBC 5.82 (4.6-6.20) M/mm3 Hgb 17.0 (14.0-18.0) g/dL Hct 50.2 (42.0-52.0) % MCV 86.3 (80-100) fl MCH 29.2 (26-34) pg MCHC 33.9 (32-36) g/dl RDW 12.6 (11.5-14.5) % Plt Count 205 (150-375) k/mm3 MPV 11.1 H (7.4-10.4) fl Immature Gran % (Auto) 0.6 H (0-0.5) % Neut % (Auto) 58.1 (45.5-73.1) % Lymph % (Auto) 28.5 (18.3-44.2) % [place] % (Auto) 7.3 (2.6-8.5) % Eos % (Auto) 5.1 H (0-4.4) % Baso % (Auto) 0.4 (0.2-1.2) % Lymph # (Auto) 3.38 H (0.9-3.2) K/mm3 [place] # (Auto) 0.9 H (0.1-0.6) K/mm3 Eos # (Auto) 0.6 H (0-0.3) K/mm3 Baso # (Auto) 0.1 (0.0-0.1) K/mm3 Abs Immat Gran (auto) 0.07 H (0.00-0.031) K/mm3 Absolute Neuts (auto) 6.9 H (1.3-6.7) K/mm3 Absolute Nucleated RBC 0.000 (0.0-0.012) K/mm3 Nucleated RBC % 0.0 (0.0-0.2) % ESR 1 (0-20) mm/hr Sodium 142 (137-145) mmol/L Potassium 4.0 (3.4-5.0) mmol/L Chloride 105 (98-107) mmol/L Carbon Dioxide 25 (22-30) mmol/L Anion Gap 12 (4-12) mmol/L BUN 17 (9-20) mg/dL Creatinine 0.70 (0.7-1.3) mg/dL Estim Creat Clear Calc 177 ml/min Estimated GFR > 60 (59 - ) Glucose 106 (65-110) mg/dL Lactic Acid 1.7 (0.7-2.0) mmol/L Calcium 9.5 (8.4-10.2) mg/dL Total Bilirubin 1.2 (0.2-1.3) mg/dL AST 31 (17-59) U/L ALT 46 (6-50) U/L Alkaline Phosphatase 84 (38-126) U/L C-Reactive Protein 1.2 H (<1.0) mg/dL Total Protein 8.0 (6.3-8.2) g/dL Albumin 4.7 (3.5-5.1) g/dL Influenza A (RT-PCR) Negative (Negative) Influenza B (RT-PCR) Negative (Negative) RSV (RT-PCR) Negative (Negative) SARS-CoV-2 RNA (RT-PCR) Negative (Negative) Imaging Data Attestation: I personally reviewed and interpreted this imaging study as follows: Radiologist's impression: ITS Impressions Head CT 01/19/25 11:20 Impression: No intracranial abnormality seen. Minimal bilateral ethmoid sinus disease. Chest X-Ray 01/19/25 11:23 Impression: Probable minimal bibasilar pulmonary edema/atelectasis. Discharge Plan Discharge Clinical Impression: Acute viral syndrome Headache Qualifiers: Headache type: unspecified Headache chronicity pattern: acute headache I ntractability: not intractable Qualified Code(s): R51.9 - Headache, unspecified Upper respiratory infection Qualifiers: URI type: unspecified URI Qualified Code(s): J06.9 - Acute upper respiratory infection, unspecified Patient Disposition: Home Condition: Stable Instructions: Antibiotic Form, Migraine Headache (ED), Upper Respiratory Infection (ED), Acute Headache (ED), Viral Syndrome (ED) Additional Instructions: Your workup here was reassuring. It is likely you have a viral upper respiratory infection. Stay well-hydrated at home. Recommend electrolyte rich fluids, Gatorade, Pedialyte, body armor. Utilize Zofran as needed for nausea. Utilize Tessalon Perles as needed for cough. Continue Tylenol and Ibuprofen for discomfort/headaches. Get plenty of rest. Recommend [id number] cough and cold medicines for symptom relief, Delsym, Mucinex, DayQuil, NyQuil, Sudafed, Robitussin, TheraFlu. Follow with primary care doctor for further evaluation and to ensure symptom improvement within the next 1 week. Return to the ED if you experience worsening or severe symptoms, severe neck pain or stiffness, persistent fevers, numbness or weakness of arm or leg, passing out, chest pain, difficulty breathing, unable to keep down food or drink, severe pain, or any other symptoms of concern. Patient Language: Mauritanian Prescriptions: New benzonatate 200 mg capsule 200 mg PO TID PRN (Reason: cough) Qty: 15 0RF ondansetron 4 mg tablet,disintegrating 4 mg PO Q8H PRN (Reason: nausea and vomiting) Qty: 15 0RF No Action tamsulosin 0.4 mg capsule 0.4 mg PO HS doxycycline hyclate 100 mg capsule 100 mg PO BID Qty: 28 0RF amlodipine 5 mg tablet 5 mg PO DAILY Qty: 30 0RF Follow-up/Referrals: PHYSICIAN NOT ON STAFF,NONSTAFF [Non-Staff] - Stand Alone Forms: Work/School Release IP Time of Disposition: 13:49
[2025-01-19 10:27] LABS: Basophils Absolute Auto 0.1 K/mm3 (0.0-0.1); Basophils Percent Auto 0.4 % (0.2-1.2); Eosinophils Absolute Auto 0.6 K/mm3 (0-0.3); Eosinophils Percent Auto 5.1 % (0-4.4); Hematocrit 50.2 % (42.0-52.0); Immature Granulocyte Absolute 0.07 K/mm3 (0.00-0.031); Immature Granulocyte Percent A 0.6 % (0-0.5); Lymphocytes Absolute Auto 3.38 K/mm3 (0.9-3.2); Lymphocytes Percent Auto 28.5 % (18.3-44.2); Mean Corpuscular HGB Conc 33.9 g/dl (32-36); Mean Corpuscular Hemoglobin 29.2 pg (26-34); Mean Corpuscular Volume 86.3 fl (80-100); Mean Platelet Volume 11.1 fl (7.4-10.4); Monocytes Absolute Auto 0.9 K/mm3 (0.1-0.6); Monocytes Percent Auto 7.3 % (2.6-8.5); Neutrophils Absolute Auto 6.9 K/mm3 (1.3-6.7); Neutrophils Percent Auto 58.1 % (45.5-73.1); Platelet Count Result 205 k/mm3 (150-375); Red Blood Count 5.82 M/mm3 (4.6-6.20); Red Cell Distribution Width 12.6 % (11.5-14.5); White Blood Count 11.9 K/mm3 (4.5-10.0)
[2025-01-19] MEDS: METOCLOPRAMIDE HCL INJ 10 MG/2 ML VIAL IV PUSH (10:28)
[2025-01-19] MEDS: SODIUM CHLORIDE 0.9% IV 1,000 ML 999 ML IV CONT (10:28)
[2025-01-19] MEDS: ACETAMINOPHEN 500 MG TABLET 1000 MG PO (10:28)
[2025-01-19] MEDS: diphenhydrAMINE HCl INJ 50 MG/ML VIAL 25 MG IV PUSH (10:28)
[2025-01-19 10:33] VITALS: BP 150/101; PULSE 115; RESP 15; O2SAT 99
[2025-01-19 10:43] LABS: Alanine Aminotransferase 46 U/L (6-50); Albumin Level 4.7 g/dL (3.5-5.1); Alkaline Phosphatase 84 U/L (38-126); Anion Gap 12 mmol/L (4-12); Aspartate Amino Transferase 31 U/L (17-59); Bilirubin,Total 1.2 mg/dL (0.2-1.3); Blood Urea Nitrogen 17 mg/dL (9-20); Calcium 9.5 mg/dL (8.4-10.2); Carbon Dioxide 25 mmol/L (22-30); Chloride 105 mmol/L (98-107); Estimated CRCL calculation 177 ml/min; Estimated Glomerular Filt Rate > 60; Glucose 106 mg/dL (65-110); Sodium 142 mmol/L (137-145)
[2025-01-19 10:46] LABS: CRP 1.2 mg/dL (<1.0)
[2025-01-19 10:49] LABS: Lactic Acid Reflex 1.7 mmol/L (0.7-2.0)
[2025-01-19 11:06] LABS: Erythrocyte Sedimentation Rate 1 mm/hr (0-20)
--- OUTSIDE RECORDS SUMMARY | 2025-01-19 11:21 | XMS_ITS | Clinical Summary ---
Author Organization [facility] Address [address] [place] [address] Care Team Providers Care Room Attendant Name Role Phone Gui Mann MD Primary Care Provider [phone] Allergies Active Allergy Reactions Criticality Noted Date Comments Morphine Other (see comment) 05/26/2019 Pt states after gettting morphine he coded Nsaids Other (see comment) 07/07/2022 States fmd advised no nsaids due to stomach issues Medications NON FORMULARYIndica tions:'flow ease' for urination daily with supper. Indications: 'flow ease' for urination Active Active Problems Problem Noted Date Diagnosed Date Closed displaced fracture of distal phalanx of right index finger 05/18/2019 Social History Tobacco Use Types Packs/Day Years Used Date Smoking Tobacco: Never Smokeless Tobacco: Never Tobacco Cessation:Counseling Given: Not Answered Alcohol Use Standard Drinks/Week Comments No 0 (1 standard drink = 0.6 oz pur e alcohol) AUDIT-C Answer Date Recorded Frequency of Alcohol Consumption Never 05/26/2019 Average Number of Drinks Not on file 019 Frequency of Binge Drinking Not on file 05/15 Sex and Gender Information Value Date Recorded Sex Assigned at Not on file 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 Gender Identity Not on file Sexual Orientation Not on file Last Filed Vital Signs Vital Sign Reading Time Taken Comments Blood Pressure 172/102 07/16/2023 1:56 PM CDT Pulse 95 07/16/2023 1:56 PM CDT Temperature 36.5 C (97.7 F) 07/16/2023 1:56 PM CDT Respiratory Rate 18 07/16/2023 1:56 PM CDT Oxygen Saturation 98% 07/16/2023 1:56 PM CDT Inhaled Oxygen Concentration - - Weight 142.3 kg (313 lb 12.8 oz) 07/16/2023 1:56 PM CDT Height 172.7 cm (5' 8 ) 07/16/2023 1:56 PM CDT Body Mass Index 47.71 07/16/2023 1:56 PM CDT Plan of Treatment Health Maintenance Due Date Last Done Comments Annual Physical 1996 Hepatitis C 2011 DTaP, Tdap and Td Vaccines ( 1 - Tdap) 2012 Hepatitis B Vaccines (1 of 3 - 19+ 3-dose series) 2012 COVID-19 Vaccine (2023-2 5 season) 2024 HPV Vaccines Aged Out No longer eligi ble based on patient's age to complete this topic Meningococcal B Vaccine Aged Out No l onger eligible based on patient's age to complete this topic Meningococcal Vaccine Aged Out No camilla marlene eligible based on patient's age to complete this topic Pneumococcal Vaccine: Pediat rics (0 to 5 Years) and At-Risk Patients (6 to 49 Years) Aged Out No longer eligible b ased on patient's age to complete this topic RSV Immunizations Under 20 Months Aged Out No longer eligible based on patient's age to complete this topic Insurance COVID19 [facility] [place] [id number] [facility] Care Teams Room Attendant Relationship Specialty Start Date End Date Gui Mann MD [address] [place] [address] PCP - General FAMILY PRACTICE 01/23/20
--- OUTSIDE RECORDS SUMMARY | 2025-01-19 11:21 | XMS_ITS | Encounter Summary ---
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 Gender Identity Not on file Sexual Orientation Not on file documented as of this encounter Plan of Treatment Not on file documented as of this encounter Visit Diagnoses Not on filedocumented in this encounter Additional Health Concerns Infection Onset Date Last Indicated Resolved Time COVID-19 Rule Out 06/30/2021 06/30/2021 06/30/2021 11:50 AM CDT COVID-19 Rule Out 07/06/2022 07/06/2022 07/06/2022 9:52 AM CDT documented as of this encounter Care Teams Cone Operator Relationship Specialty Start Date End Date Gui Mann MD [address] [place] [id number] PCP - General FAMILY PRACTICE 01/23/20 documented as of this encounter
[2025-01-19] MEDS: KETOROLAC 30 MG/ML VIAL (*BKC) IV PUSH (11:52)
[2025-01-19 12:40] LABS: Influenza A QL RT-PCR Negative (Negative); Influenza B QL RT-PCR Negative (Negative); RSV RNA, RT-PCR Negative (Negative); SARS-CoV-2 RNA PCR Negative (Negative)
[2025-01-19 13:41] VITALS: BP 160/111; PULSE 106; RESP 16; O2SAT 97
[2025-01-19 13:44] VITALS: PULSE 91
[2025-01-19 14:08] VITALS: BP 151/90; RESP 20; O2SAT 98
== END 2025-01-19 14:10 | disposition home or self-care (01) ==
PROVIDERS: Emergency Provider Physician Assistant
DX: B34.9 Viral infection, unspecified (principal); J06.9 Acute upper respiratory infection, unspecified; R51.9 Headache, unspecified; Z20.822 Contact with and (suspected) exposure to COVID-19; Z79.899 Other long term (current) drug therapy
CPT/HCPCS: 36415; 70470; 71046; 80053; 83605; 85025; 85652; 86140; 87637; 96361; 96374; 96375; 99284; A9270; J1200; J1885; J2765; J7030; Q9967